=== PATIENT | female | born 1965 | race Two or more races ===

== ENCOUNTER 2023-09-19 12:45 | Emergency (ER) | payer OTHER ==
[~2023-09-19] VITALS: Ht 152.4 cm; Wt 96.2 kg
[2023-09-19] MEDS ORDERED: GLUMETZA500 MG PO (13:52)
[2023-09-19] MEDS ORDERED: SYNTHROID125 MCG PO (13:52)
[2023-09-19] MEDS ORDERED: COZAAR100 MG PO (13:53)
[2023-09-19] MEDS ORDERED: HYDROCHLOROTH12.5 MG PO (13:56)
[2023-09-19] MEDS ORDERED: LIPITOR40 M1 PO (13:56)
[2023-09-19] MEDS ORDERED: NORVASC5 MG PO (13:57)
[2023-09-19] MEDS ORDERED: CEFTRIAXONE SODIUM 2,000 MG VIAL IM ONE (17:45)
[2023-09-19] MEDS ORDERED: LIDOCAINE HCL 100 MG/10ML VIAL PERCUT ONE (17:45)
[2023-09-19] MEDS ORDERED: ACETAMINOPHEN WITH CODEINE 1 UDTAB TABLET PO ONE (17:45)
== END 2023-09-19 21:17 | disposition home or self-care (01) ==
LOC: ER 12:45
DX: L02.31 Cutaneous abscess of buttock (principal); Z88.8 Allergy status to other drugs, medicaments and biological substances; E05.80 Other thyrotoxicosis without thyrotoxic crisis or storm; I10 Essential (primary) hypertension; E11.9 Type 2 diabetes mellitus without complications; Z79.84 Long term (current) use of oral hypoglycemic drugs

== ENCOUNTER → 2024-01-26 14:45 | Outpatient (CLI) | payer OTHER ==
[~2024-01-26 14:45] MED LIST: COZAAR100 MG PO; GLUMETZA500 MG PO; HYDROCHLOROTH12.5 MG PO; LIPITOR40 M1 PO; NORVASC5 MG PO; SYNTHROID125 MCG PO
== END | disposition home or self-care (01) ==
LOC: LAB 14:45
PROVIDERS: ATTEND Specialist
DX: L02.91 Cutaneous abscess, unspecified (principal)

== ENCOUNTER 2024-02-01 07:49 | Inpatient (IN) | payer OTHER ==
[~2024-02-01] VITALS: Ht 152.4 cm; Wt 98.0 kg
[2024-02-01] MEDS ORDERED: NORVASC2.5 M1 PO (08:18)
--- NOTE | 2024-02-01 08:18 | NUR ---
PTE ALERTA Y ORIENTADA X3 REFIERE VENIR POR ORDEN DEL DR. DOV ALLEN PUES SE ESTA TRATANDO ABCESO EN EL GLUTEO FACUNDO EL CUAL SE OBSERVA ENROJECIDO E IRRITADO. PTE REFIERE QUE EL TRATAMIENTO NO ESTA DANDO LOS RESULTADOS ESPERADOS. SE MIDEN SV Y SE UBICA EN FT.
--- NOTE | 2024-02-01 09:48 | NUR ---
SE RECIBE PTE ALERTA Y ORIENTADA X3 SE LE ORIENTA SOBRE TX MEDICO LA MISMA REFIERE ENTENDER. SE LE REALIZA NASEEM DE MUESTRAS VIK ORDEN MEDICA.
[2024-02-01 09:53] LABS: HEMATOCRIT 41.5 % (36.0-45.00); HEMOGLOBIN 14.2 g/dL (12.0-15.00); MEAN CELL VOLUME 86.7 fL (80.00-100.00); MEAN CORPUSCULAR HEMOGLOBIN 29.6 pg (27.00-32.0); MEAN CORPUSCULAR HGB CONC 34.1 g/dl (32.0-36.0); PLATELET COUNT 364 K/uL (150-450); RED BLOOD COUNT 4.79 M/uL (4.00-6.00); RED CELL DISTRIBUTION WIDTH 14.4 % (11.5-14.5)
[2024-02-01 10:19] LABS: CALCIUM 8.9 mg/dL (8.5-10.1); CREATININE SERUM 0.76 mg/dL (0.55-1.02); GFR 78.16; POTASSIUM 4.02 mEq/L (3.5-5.1)
[2024-02-01] MEDS ORDERED: INSULIN LISPRO 1,000 UNIT/10 ML UNITS SUBCUTANEO PRN (11:30)
[2024-02-01] MEDS ORDERED: RINGERS SOLUTION,LACTATED 1,000 ML IV SCH (11:30)
[2024-02-01] MEDS ORDERED: DEXTROSE 50 % IN WATER 0.5 G/ML DISP.SYRIN IV PRN (11:30)
[2024-02-01] MEDS ORDERED: VANCOMYCIN HCL 1,000 MG VIAL IV STA (11:35)
[2024-02-01] MEDS ORDERED: CEFTRIAXONE SODIUM 2,000 MG VIAL IV SCH (11:36)
[2024-02-01 11:41] LABS: PH,URINE 5.5 (5.0-8.0); URINE APPEARANCE Clear; URINE BILIRRUBIN Negative (NEGATIVE); URINE BLOOD Negative; URINE COLOR Yellow; URINE GLUCOSE Negative (NEGATIVE); URINE KETONE Negative (NEGATIVE); URINE LEUKOCYTE Negative; URINE NITRATE Negative; URINE PROTEIN Negative (NEGATIVE); URINE UROBILINOGEN 0.2 E.U./dl
[2024-02-01 11:45] LABS: URINE BACTERIA 99.5 uL (0.0-1933); URINE EPITHELIAL CELLS 22.7 uL (0.0-38.8); URINE WBC 4.3 uL (0.0-23.2)
[2024-02-01 15:01] LABS: CHOL HDL RATIO 3.9 (0-5.0)
[2024-02-01 15:21] LABS: C-REACTIVE PROTEIN 2.2 MG/DL (0.00-0.29)
[2024-02-01] MEDS ORDERED: ATORVASTATIN CALCIUM 40 MG TABLET PO SCH (17:00)
[2024-02-01] MEDS ORDERED: AZTREONAM 1,000 MG in 0.9 % SODIUM CHLORIDE 50 ML IV SCH (17:00)
[2024-02-01] MEDS ORDERED: NIFEDIPINE 30 MG TAB.SA.OSM PO SCH (17:00)
[2024-02-01] MEDS ORDERED: VANCOMYCIN HCL 5 MG/ML REDILUIDO IV SCH (21:00)
[2024-02-01] MEDS ORDERED: FAMOTIDINE/PF 20 MG/2 ML VIAL IV SCH (21:00)
[2024-02-01] MEDS ORDERED: VANCOMYCIN HCL 1,000 MG VIAL IV SCH (21:00)
[2024-02-02] MEDS ORDERED: VANCOMYCIN HCL 5 MG/ML REDILUIDO IV SCH (05:00)
[2024-02-02] MEDS ORDERED: LEVOTHYROXINE SODIUM 125 MCG TABLET PO SCH (06:00)
[2024-02-02] MEDS ORDERED: LOSARTAN/HYDROCHLOROTHIAZIDE 1 TAB TABLET PO SCH (09:00)
[2024-02-02] MEDS ORDERED: ENOXAPARIN SODIUM 40 MG/0.4 ML SYRINGE SUBCUTANEO SCH (09:00)
[2024-02-03 09:09] LABS: IMMUNOGLOBULIN A 261 mg/dL (87-352); IMMUNOGLOBULIN G 760 mg/dL (586-1602); IMMUNOGLOBULIN M 75 mg/dL (26-217)
[2024-02-05 08:16] LABS: HEMATOCRIT 37.9 % (36.0-45.00); HEMOGLOBIN 12.7 g/dL (12.0-15.00); MEAN CELL VOLUME 87.9 fL (80.00-100.00); MEAN CORPUSCULAR HEMOGLOBIN 29.6 pg (27.00-32.0); MEAN CORPUSCULAR HGB CONC 33.6 g/dl (32.0-36.0); PLATELET COUNT 294 K/uL (150-450); RED BLOOD COUNT 4.31 M/uL (4.00-6.00); RED CELL DISTRIBUTION WIDTH 14.4 % (11.5-14.5)
[2024-02-05 08:46] LABS: ALBUMIN 2.5 gm/dL (3.4-5.0); BILIRUBIN TOTAL 0.69 mg/dL (0.3-1.2); CALCIUM 8.4 mg/dL (8.5-10.1); CREATININE SERUM 0.57 mg/dL (0.55-1.02); GFR 108.94; GLOBULINA 2.8 G/DL (2.4-3.5); PHOSPHOROUS 3.2 mg/dL (2.5-4.9); POTASSIUM 4.06 mEq/L (3.5-5.1); TOTAL PROTEIN 5.3 gm/dL (6.4-8.2)
[2024-02-05] MEDS ORDERED: METROnidazole 500 MG TABLET PO SCH (17:00)
[2024-02-06] MEDS ORDERED: PANTOPRAZOLE SODIUM 40 MG TABLET.DR PO SCH (09:00)
[2024-02-08] MEDS ORDERED: NIFEDIPINE 30 MG TAB.SA.OSM PO SCH (12:00)
[2024-02-09] MEDS ORDERED: VANCOMYCIN HCL 5 MG/ML REDILUIDO IV SCH (17:00)
[2024-02-10] MEDS ORDERED: LOSARTAN/HYDROCHLOROTHIAZIDE 1 UDTAB TABLET PO SCH (09:00)
[2024-02-11] MEDS ORDERED: LOSARTAN-HCTZ1 EAC2 PO (13:26)
[2024-02-11] MEDS ORDERED: LIPITOR40 M1 PO (13:26)
[2024-02-11] MEDS ORDERED: INTESTINEX680 M2 PO (13:27)
[2024-02-11] MEDS ORDERED: LINEZOLID600 MG PO (13:28)
[2024-02-11] MEDS ORDERED: METRONIDAZOLE500 MG PO (13:29)
[2024-02-11] MEDS ORDERED: BACTRIM DS TAB1 EACH PO (13:31)
[2024-02-11] MEDS ORDERED: NIFEDIPINE ER30 M1 PO (13:34)
[2024-02-11] MEDS ORDERED: LEVOTHYROXINE125 MCG PO (13:35)
== END 2024-02-11 14:52 | disposition home or self-care (01) | DRG 623 ==
LOC: ER 07:50 → MEDJ 12:02
PROVIDERS: Emergency Medicine; Student in an Organized Health Care Education/Training Program; ADMIT Internal Medicine; ATTEND Internal Medicine
PROC: BL41ZZZ Ultrasonography of Lower Extremity Connective Tissue (ICD-10-PCS; 2024-02-02)
PROC: 0JB90ZZ Excision of Buttock Subcutaneous Tissue and Fascia, Open Approach (ICD-10-PCS; principal; 2024-02-10)
DX: E11.628 Type 2 diabetes mellitus with other skin complications (principal); L02.31 Cutaneous abscess of buttock; L03.317 Cellulitis of buttock; Z68.41 Body mass index [BMI] 40.0-44.9, adult; L98.419 Non-pressure chronic ulcer of buttock with unspecified severity; L72.8 Other follicular cysts of the skin and subcutaneous tissue; E66.8 Other obesity; E03.9 Hypothyroidism, unspecified; I10 Essential (primary) hypertension; E78.5 Hyperlipidemia, unspecified; E78.1 Pure hyperglyceridemia; B96.1 Klebsiella pneumoniae [K. pneumoniae] as the cause of diseases classified elsewhere; B96.4 Proteus (mirabilis) (morganii) as the cause of diseases classified elsewhere; B95.2 Enterococcus as the cause of diseases classified elsewhere; B95.62 Methicillin resistant Staphylococcus aureus infection as the cause of diseases classified elsewhere; B96.89 Other specified bacterial agents as the cause of diseases classified elsewhere